=== PATIENT | female | born 1980 | race Caucasian/White ===

== ENCOUNTER 2016-11-21 01:43 | Observation (INO) | payer OTHER ==
[~2016-11-21] VITALS: Ht 162.1 cm; Wt 129.9 kg
--- NOTE | ~2016-11-21 | HP ---
PATIENT'S NAME: KRYSTA ARNDT [facility] AGE: 36 Y [address] ROOM: [address] [place], [place] [address] LOCATION: GPCU ADMIT DATE: 11/21/2016 History & Physical DISCHARGE DATE: FAMILY PHYSICIAN: Jordan Davis MD ATTENDING PHYSICIAN: Jordan Davis DATE OF SERVICE: CHIEF COMPLAINT: Complaints of severe mid anterior to left chest and left upper chest pain that radiates into her left neck, toward her left shoulder, through her back, and then toward her left shoulder in the back. This was accompanying with nauseousness and initially with cold sweats, diaphoresis, and slight shortness of breath. HISTORY OF PRESENT ILLNESS: The patient is a 36-year-old morbidly obese female with known, 3-year history of diabetes for which she is on insulin along with hypertension and hyperlipidemia. As I mentioned, she is also morbidly obese. The patient reports that she has had no illnesses recently. She also reports that she has not done any unusual lifting or carrying activities over the last several days to week. She actually just had recent normal thyroid tests on November 18. She actually did just see Dr. Davis for exam on November 12. It was for an insurance physical along with a followup. At that time, microalbumin level was normal. As I mentioned, she had thyroid tests that showed normal TSH and normal free T4. Her last A1c was quite elevated at 9.3 just on 11/12/2016. Her chemistry panel at that time showed a sodium of 137, potassium 3.7, chloride 97, CO2 of 25, glucose 149, BUN 9, creatinine 0.79, EGFR greater than 60, and calcium 10.4. Total protein 7.7. Albumin 4.4. ALT 33, AST 26, and alkaline phosphatase 78. Total bilirubin 1.0. Her lipid panel showed a cholesterol of 171, triglycerides 118, HDL 64, VLDL 23.6, and her LDL was 97. She had a urine culture that showed contamination at that time. As I mentioned, the patient has not been doing any unusual activities. She was actually at work when her symptoms happened. She works for [employer], nights. She was just sitting at her desk when she had the onset of this pain as mentioned above. As I mentioned, the pain came on, and she did state that she broke into a cold sweat. She felt short of breath and nauseous. She then went to the emergency room where she was evaluated. Cardiac enzymes, 2 sets 2 hours apart, were both normal. EKG showed no acute changes. She did have elevated D-dimer, so they did a CT PE protocol which showed no evidence of pulmonary embolism. She does have a known history of a thoracic aneurysm. It was 4.5 cm in size. In February to March of 2015, it was 4.1 cm. So, for a year and a half to a 2-year period, it has only gone up 0.4 cm. There was no evidence of dissection. It was thought best just to go ahead and admit her. Fentanyl did seem to bring down her pain. At the time I am seeing her, PATIENT'S NAME: KRYSTA ARNDT [facility] AGE: 36 Y [address] ROOM: [place] [address] LOCATION: GPCU ADMIT DATE: 11/21/2016 History & Physical DISCHARGE DATE: FAMILY PHYSICIAN: Jordan Davis MD ATTENDING PHYSICIAN: Jordan Davis the patient is resting comfortably on bed and is on her phone and watching TV. She does not be appear to be in any acute distress. She does state that her pain is 8/10 in nature. PAST MEDICAL HISTORY: ALLERGIES: ALMONDS, BANANAS, COPAXONE, COPPER, MORPHINE, AND STRAWBERRIES. CHRONIC HEALTH PROBLEMS: Include a history of acquired hypothyroidism; thoracic aortic aneurysm; and diabetes mellitus, type 2, which she has had for about 3 years and is insulin dependent. She also has essential hypertension, history of gastroesophageal reflux disease, and hiatal hernia. She does also have a history of irritable bowel syndrome with diarrhea, morbid obesity, hypercholesterolemia, seasonal allergic rhinitis, seizure disorder, somnolence, vitamin B12 deficiency, and does have this history of multiple sclerosis documented in the past. PREVIOUS SURGERIES: Include a history of hysterectomy. She had a colonoscopy on 09/16/2015 that did show 2 polyps, and it was recommended she have a repeat in 5 years. She had an EGD in 05/2012 which showed a hiatal hernia and multiple ulcers. She has had a hysteroscopy in the past along with endometrial ablation and polypectomy. She also has had a previous LEEP procedure done back in 1998. As I mentioned, she ended up with abdominal hysterectomy. She also had a history of a , a cervical fusion, lumbar fusion, and tonsillectomy in the past. SOCIAL HISTORY: The patient is and has 3 teenage boys. She works for [employer] and [employer] overnight. Habits: She does not smoke and does not drink. She does report doing a very small amount of marijuana back in high school, but has not done any during her actual adult life. FAMILY HISTORY: Remarkable for mother with a history of thyroid issues. Her father in a MVA, he was intoxicated and crashed into a truck. REVIEW OF SYSTEMS: GENERAL: Really, the patient states that she just has not felt the best over the last few days. She states she did not have anything specific. She just has not felt her normal self for about 2 days. Her main symptoms just started around midnight the day of admission. HEENT: Negative. LUNGS: Negative. PATIENT'S NAME: KRYSTA ARNDT [facility] AGE: 36 Y [address] ROOM: [address] [address] LOCATION: [facility] ADMIT DATE: 11/21/2016 History & Physical DISCHARGE DATE: FAMILY PHYSICIAN: Jordan Davis MD ATTENDING PHYSICIAN: Jordan Davis CARDIOVASCULAR: Just the chest pains as mentioned above. GASTROINTESTINAL: She did have some nauseousness, but no vomiting. GENITOURINARY: Negative. MUSCULOSKELETAL: Otherwise, negative. PHYSICAL EXAMINATION: GENERAL: An alert female who is resting comfortably at this time with her phone in front of her, looks like she was texting, and also has the TV on. HEENT: Normal. NECK: Supple. No adenopathy, thyromegaly, or bruits. LUNGS: Clear. HEART: Regular rate and rhythm. CHEST: Chest wall does show that she is significantly tender along her mid sternum with tenderness in the left costochondral junctions going toward her shoulder region. ABDOMEN: Morbidly obese. Bowel sounds positive. She is nontender and nondistended. EXTREMITIES: No cyanosis, clubbing, or edema. VITAL SIGNS: She is afebrile. Vital signs are stable. LABORATORY DATA: Blood sugar this morning is 108. Her CPK has been 109 and 89. Troponin-I less than 0.040 x2. The proBNP is normal at 62. Her white count is 8.5, hemoglobin 13.7, hematocrit 40.3, and platelet count is 220. Her glucose when she presented to the ER was 186, BUN 9, creatinine 0.8, sodium 139, potassium 3.9, chloride 104, CO2 of 27, and calcium 8.6. Total protein 7. Albumin 3.3. AST 25, ALT 35, and alkaline phosphatase 85. Total bilirubin 0.5. Magnesium slightly low at 1.5. Globulin is 3.7. Her prothrombin time is 10.1 with an INR of 0.96 with a PTT of 24. Her GFR is greater than 60. Her CK-MB is 0.6 x2. Her differential shows 54.5% neutrophils and 33.1% lymphocytes. Her D- dimer is 0.35. Her EKG shows no acute changes. CT of her chest does show the increasing thoracic aneurysm from 4.1 up to 4.5 cm on today's. No other abnormalities. ASSESSMENT: 1. Chest pain. 2. Musculoskeletal pain with palpation. 3. History of thoracic aneurysm with increase from 4.1 up to 4.5 cmm but no signs of dissection. 4. Adult-onset diabetes mellitus x3 years and is insulin dependent. 5. Morbid obesity. 6. Mild hypomagnesemia. 7. History of EGD that showed hiatal hernia with multiple ulcers in the past. 8. Questionable history of multiple sclerosis in the past. PATIENT'S NAME: KRYSTA ARNDT [facility] AGE: 36 Y [address] ROOM: [place] [address] LOCATION: GPCU ADMIT DATE: 11/21/2016 History & Physical DISCHARGE DATE: FAMILY PHYSICIAN: Jordan Davis MD ATTENDING PHYSICIAN: Jordan Davis 9. History of seizure disorder. 10. Hypertension. 11. Hyperlipidemia. PLAN: I have consulted both Dr. Begum to make sure he thinks her aneurysm is stable and Dr. Qureshi from a cardiology standpoint. Her EKG does not suggest pericarditis, but I think we need to make sure we rule this out also. We will get an echo and some inflammatory markers to check things further. We are going to finish out her serial EKG and enzymes. Dr. Davis will take over later today. I will be available until he is back in town. We did order fentanyl as needed for pain. She may just need the antiinflammatory, although we would have to make sure, with her history of GI problems, we cover her with a PPI. MD KEILY AVILEZ/skip /[id number] D: [id number] T: HISTORY & PHYSICAL
--- NOTE | ~2016-11-21 | ECHO ---
Transthoracic Echocardiography Report (TTE) Demographics Patient Name KRYSTA ARNDT Date of Study 11/21/2016 Patient Number [id number] Visit Number [id number] Date of 1980 Room Number G6303 Gender Female Number Age 36 year(s) Referring Toshia Adrian Carpenter/Labor Tawana Enamorado [facility], Physician RVT Ryan Moran APRN Physician Interpreting Kiera Abebe Fire Prevention Chief Physician Supervising Ordering Kiera Abebe MD/MLP Physician Nurse Stress Energy Scheduler Conclusions Contractility Score Summary Normal Left Ventricular contractility was noted. Summary The estimated left ventricular ejection fraction is 60-65%. Mild concentric left ventricular hypertrophy. There is mild aortic regurgitation by color Doppler. Aortic valve not well visualized The ascending aorta appears dilate and measures 4.0 cm. Procedure Type of Study TTE procedure:2D Echocardiogram. Procedure Date Date: 11/21/2016 Start: 11:36 AM Study Location: Inpatient Portable Technical Quality: Fair Indications:Chest pain. Appropriate Use Criteria: 9 Patient Status: Routine Rhythm: Within normal limits HR: 57 bpm BP: 124/73 mmHg M-Mode/2D Measurements LV Diastolic Dimension: 4.97 cm LV Systolic Dimension: 3.54 cm LV Septum Diastolic: 1.04 cm LV PW Diastolic: 1.15 cm AO Root Dimension: 2.7 cm Cardiac Output: 4.68 l/min LA Dimension: 3.6 cm LVOT: 2.1 cm IVC Inspiration: 0.96 cm LVOT VTI: 23.7 cm RV Base: 3.76 cm LV Stroke volume: 82.05 ml RV Length: 5.76 cm TAPSE: 2.55 cm TDI-S': 12.9 cm/s Doppler Measurements AV Peak Velocity: 1.54 m/s MV Peak E-Wave: 1.08 m/s AV Peak Gradient: 9.49 mmHg MV Peak A-Wave: 0.83 m/s AV Mean Gradient: 5 mmHg MV E/A Ratio: 1.29 LVOT Peak Velocity: 0.85 m/s MV P1/2t: 55 msec AV P1/2t: 968 msec TR Gradient:25.2 mmHg PV Peak Velocity: 1.07 m/s Estimated RAP:3 mmHg PV Peak Gradient: 4.58 mmHg Estimated RVSP: 28 mmHg Estimated PASP: 28.2 mmHg E' Septal Velocity: 0.11 m/s A' Septal Velocity: 0.06 m/s E' Lateral Velocity: 0.06 m/s A' Lateral Velocity: 0.09 m/s MV E/E' Ratio: 17.6 Findings Left Ventricle The estimated left ventricular ejection fraction is 60-65%. Mild concentric left ventricular hypertrophy. Diastolic assessment reveals normal relaxation. Right Ventricle Normal right ventricle structure and function. Left Atrium Normal left atrial size. Right Atrium Normal right atrial size. Mitral Valve Mild trivial regurgitation by color Doppler. Aortic Valve There is mild aortic regurgitation by color Doppler. AV is not well seen. No evidence of stenosis based on doppler gradients. Tricuspid Valve Mild tricuspid regurgitation by color Doppler. Pulmonic Valve The pulmonic valve is not well visualized. No pulmonic valve regurgitation by color Doppler. Pericardial Effusion No evidence of pericardial effusion. Miscellaneous The ascending aorta appears dilated. The maximum diameter measures 4.0 cm. Pleural Effusion No evidence of pleural effusion. Contractility Score LV regional wall motion:(0-Non visualized 1-Normal 2-Hypokinesis 3-Akinesis 4-Dyskinesis 5-Aneurysm) Signature dtt: WALTER ALEXANDRE dtd: 11/21/16 1136 Physician Self Edit
--- NOTE | ~2016-11-21 | ER ---
PATIENT'S NAME: KRYSTA ARNDT [facility] AGE: 36 Y [address] ROOM: [place] [address] LOCATION: GPCU ADMIT DATE: 11/21/2016 ER/Outpatient Report DISCHARGE DATE: FAMILY PHYSICIAN: Jordan Davis MD ATTENDING PHYSICIAN: Sagar Pope Admission date and time documented in the medical record. I saw the patient at 0155 hours. CHIEF COMPLAINT: Midanterior chest tightness with burning sensation radiating to her left neck and through to her mid upper back. HISTORY OF THE PRESENT ILLNESS: The patient is a 36-year-old female, who about an hour prior to admission in the emergency room was awoken from sleep with mid anterior chest tightness and burning sensation radiating through to her back between her shoulder blades into her left neck. She is little nauseated, short of breath. Little bit lightheaded, dizzy, but no syncope or near syncope. No vomiting, no diaphoresis. She has not felt well for several days. She is an insulin- dependent diabetic and her blood sugars have been out of her norm. No headache, eyes ears, nose, throat pain. No neck pain. No recent cough, cold, flus, fever, chills, or sweats. No fall or trauma. No abdominal pain, diarrhea, urinary frequency, urgency, or dysuria. No joint or muscle swelling, redness, or pain. No skin eruptions or rash. She does have history of hypothyroidism and insulin-dependent diabetes mellitus type 2. She does have a seizure disorder, but no previous CVA or TIA. No psych issues. HOME MEDICATIONS: See attached medication list. ALLERGIES: MORPHINE SULFATE. SOCIAL HISTORY: Nonsmoker, occasional intake of alcohol. SIGNIFICANT PAST MEDICAL HISTORY: Multiple sclerosis, seizure disorder, insulin-dependent diabetes mellitus type 2, hypothyroidism, hypertension, dyslipidemia, ascending thoracic aortic aneurysm, hiatal hernia, and gastroesophageal reflux. OPERATIONS: Cervical neck fusion, tonsillectomy, , tubal ligation, LEEP procedure. PATIENT'S NAME: KRYSTA ARNDT [facility] AGE: 36 Y [address] ROOM: [place] [address] LOCATION: GPCU ADMIT DATE: 11/21/2016 ER/Outpatient Report DISCHARGE DATE: FAMILY PHYSICIAN: Jordan Davis MD ATTENDING PHYSICIAN: Sagar Pope REVIEW OF SYSTEMS: All systems reviewed by me are negative with the exception of those discussed in the history of present illness. PHYSICAL EXAMINATION: VITAL SIGNS: Temperature 99, tympanic; pulse 90 and regular; respirations 22; blood pressure 146/100; O2 saturation on room air is 98%. Abington coma scale is 15. The patient's pain scale is about 6 to 7/10 with a maximum of 10/10 at home. HEAD: Normocephalic. EYES, EARS, NOSE, THROAT: Clear. Mucous membranes are moist. NECK: No nuchal rigidity. No thyromegaly or cervical adenopathy. No tenderness. SPINE: Nontender. No deformity. LUNGS: Clear. Good air flow. No rales, rhonchi, or wheezes. HEART: Regular. Pulses are palpable. Some mild tenderness over the sternum to palpation. ABDOMEN: Soft, nondistended, nontender, good bowel tones. No organomegaly or abnormal masses palpable. No CVA tenderness. EXTREMITIES: No peripheral edema, cyanosis, or deformity. NEUROVASCULAR: Intact. SKIN: Clear. No skin eruptions or rash. LABORATORY DATA: EKG showed sinus rhythm. No acute ST elevation, ischemic changes, or arrhythmia x2 two hours apart. [id number] cardiac enzymes were normal x2, 2 hours apart. CPK was normal x2, 2 hours apart. White count was 8500, 55 segs, 33 lymphocytes, 7 monos, 5 eos, 1 baso. Hemoglobin was 13.7, hematocrit 40.3, platelet count is 220,000. PTT was 24, pro-time is 10.1 with an INR of 0.96. CMS was normal except an elevated glucose of 186. Magnesium 1.5. ProBNP was 62. D-dimer 0.35. We did give the patient oral GI cocktail without improvement. We gave her fentanyl for pain. CT scan of the chest with IV contrast showed no evidence of pulmonary embolism, infiltrate, or effusion. There is no pericardial effusion. There was aneurysm in ascending thoracic aorta measuring 4.5 cm. No evidence of dissection. The patient had a CT scan of the chest in February 2015 and her aneurysm at that time was 4.1 cm. It has increased to 4.5 cm, although still there is no evidence of dissection. CT scan was read by Radiology, see dictated transcribed report. IMPRESSION: 1. Mid anterior chest pain radiating through to her back and her left jaw, etiology uncertain at this time. Her cardiac enzymes and EKGs were normal. Her CT scan of her chest did show ascending thoracic aortic aneurysm measuring 4.5 cm; however, there was no evidence of dissection. PATIENT'S NAME: KRYSTA ARNDT [facility] AGE: 36 Y [address] ROOM: [place] [address] [facility]: [facility] ADMIT DATE: 11/21/2016 ER/Outpatient Report DISCHARGE DATE: FAMILY PHYSICIAN: Jordan Davis MD ATTENDING PHYSICIAN: Sagar Pope 2. Hypertension. 3. Insulin-dependent diabetes mellitus type 2. 4. Dyslipidemia. 5. Hiatal hernia with gastroesophageal reflux. 6. Seizure disorder. 7. Multiple sclerosis. PLAN: I did discuss this patient with Dr. Pope per Dr. Davis. We will admit the patient to PCU telemetry for further evaluation. Discussion ensued with the patient concerning my findings and recommendations, she understands. COURTNEY DEL VALLE MD SDS/modl /[id number] d: 11/21/16617 t: 11/21/16 1821, OUTPATIENT REPORT
--- NOTE | ~2016-11-21 | CON ---
PATIENT'S NAME: KRYSTA ARNDT [facility] AGE: 36 Y [address] ROOM: [place] [address] LOCATION: GPCU ADMIT DATE: 11/21/2016 Consultation DISCHARGE DATE: FAMILY PHYSICIAN: Jordan Davis MD ATTENDING PHYSICIAN: Jordan aDvis REFERRING PHYSICIAN: Johnnie Begum DO REFERRING PHYSICIAN: Dr. Pope. REASON FOR CONSULT: Chest pain, thoracic aortic aneurysm. HISTORY OF PRESENT ILLNESS: Ms. Arndt is a pleasant 36-year-old female with history of hypertension, diabetes, hyperlipidemia. The patient has been symptomatic since last night with complaints of chest pain. 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 The pain was severe in intensity. The pain started in the back of her upper chest. She also complained of pain on the front of the chest. She also complained of tightness in the chest. The patient stated that coughing makes her pain feel better. No specific relationship with movements. The pain is not related to exertion. The patient complained of persistent pain since midnight last night. No other specific aggravating or relieving factors. REVIEW OF SYSTEMS: The patient denied any recent change in vision except she stated that she off and on has fuzziness in front of her eyes. No history of nausea, vomiting, diarrhea, or constipation. No history of fever. No history of significant weight gain or weight loss. No history of palpitations. Review of other systems was essentially negative. PAST MEDICAL HISTORY: Hypertension, diabetes, hyperlipidemia, hiatal hernia, gastroesophageal reflux disease. SOCIAL HISTORY: The patient is and lives with her . PERSONAL HISTORY: Nonsmoker, has occasional alcoholic beverage. FAMILY HISTORY: Her grandfather had arrhythmia. No history of premature coronary artery disease in the family. Her mother is alive and healthy, has hypertension. Her father in an accident. PATIENT'S NAME: KRYSTA ARNDT [facility] AGE: 36 Y [address] ROOM: [place] [address] LOCATION: GPCU ADMIT DATE: 11/21/2016 Consultation DISCHARGE DATE: FAMILY PHYSICIAN: Jordan Davis MD ATTENDING PHYSICIAN: Jordan Davis CURRENT MEDICATIONS: 1. Metoprolol 25 mg b.i.d. 2. Lisinopril 10 mg daily. 3. Insulin. 4. Atorvastatin 80 mg daily. 5. Aspirin 81 mg daily. 6. Fluticasone spray. 7. Loratadine 10 mg p.r.n. 8. Levothyroxine 175 mcg daily. 9. Insulin. 10. Acetaminophen p.r.n. 11. Ondansetron p.r.n. PHYSICAL EXAMINATION: GENERAL: She is awake, alert, and oriented. VITAL SIGNS: Her heart rate is 68 beats per minute, blood pressure is 122/60, temperature 97.7, and respiratory rate 16. HEENT: Her head is atraumatic and normocephalic. Pupils are bilaterally equal. Oral mucosa is moist. NECK: No significant jugular venous distention is present. CARDIOVASCULAR: S1 and S2 are audible. They are regular in rate and rhythm with no audible murmur. RESPIRATORY: Bilateral vesicular breath sounds are audible with no adventitious sounds. ABDOMEN: Soft, nontender. Bowel sounds are present. The patient has chest wall tenderness anteriorly in the parasternal area. EXTREMITIES: Showed no significant pedal edema. NEUROLOGIC: The patient is awake, alert, and oriented. No focal neurological deficits noted. SKIN: Warm and dry. LABORATORY DATA: Sodium 139, potassium 3.9, chloride 104, CO2 27, glucose 186, BUN 9, creatinine 0.8. Albumin is 3.3. AST 25, ALT 35. Magnesium 1.5. CPK 89. CK- MB 0.6. Troponin less than 0.04. White blood cell count 8.5, hemoglobin 13.7, platelet count 220. Her EKG showed sinus rhythm with no acute ST-T wave changes. CT scan of the chest done on November 21, 2016 showed aneurysmal dilatation of ascending thoracic aorta measuring 4.5 cm. ASSESSMENT: 1. Chest pain. 2. Hypertension. 3. Hyperlipidemia. 4. Diabetes mellitus. 5. Hypomagnesemia. PATIENT'S NAME: KRYSTA RANDT [facility] AGE: 36 Y [address] ROOM: [address] [place], [place] [address] LOCATION: GPCU ADMIT DATE: 11/21/2016 Consultation DISCHARGE DATE: FAMILY PHYSICIAN: Jordan Davis MD ATTENDING PHYSICIAN: Jordan Davis 6. Gastroesophageal reflux disease. 7. Thoracic aortic aneurysm. PLAN: The patient has had persistent chest pain for over 10 hours. Her cardiac enzymes are negative so far. Her pain is reproducible on pressing on the chest wall suggesting musculoskeletal in origin. However, patient has risk factors for coronary artery disease, including hypertension, diabetes, and hyperlipidemia. The patient also has thoracic aortic aneurysm. We will obtain 2D echocardiogram to evaluate left ventricular function as well as aortic valve. Continue medical therapy for hypertension, diabetes, and hyperlipidemia. We will monitor serial cardiac isoenzymes and EKGs. We will make further recommendations depending on echocardiogram results. We will replace magnesium. We will follow the patient along with you. Thank you, Dr. Pope, for allowing us in taking part in the care of this pleasant patient. The plan of care was discussed with the patient and Dr. Pope. MD TAVIA HOFFMAN/skip /[id number] d: 11/21/16 1349 t: 11/26/16 1626, CONSULTATION REPORT
[~2016-11-21 01:43] MED LIST: ASPIRIN EC81 MG PO; FLONASE 50 MCG/16 GM NOSE; GLUCOPHAGE1000 MG PO; HUMALOG100 UNIT/1 SUB-Q; LANTUS100 UNIT/1 SUB-Q; LEVOTHROID(SY175 MCG PO; LIPITOR80 MG PO; LOPRESSOR25 MG PO; MOTRIN800 MG PO; PERCOCET 5-3251 EACH PO; PRINIVIL OR ZES10 MG PO; ZYRTEC10 MG PO
[2016-11-21 02:04] LABS: BASOPHIL # 0.1 K/uL (0.0-0.2); BASOPHIL % 0.7 %; EOSINOPHIL # 0.4 K/uL (0.0-0.5); EOSINOPHIL % 4.6 %; HEMATOCRIT 40.3 % (33.0-46.0); HEMOGLOBIN 13.7 g/dL (11.0-15.0); IMMATURE GRANULOCYTE % 0.4 %; LYMPHOCYTE # 2.8 K/uL (0.8-4.0); LYMPHOCYTE % 33.1 %; MCH 31.4 pg (27.0-34.0); MCV 92.2 fl (83.0-98.0); MONOCYTE # 0.6 K/uL (0.0-1.0); MONOCYTE % 6.7 %; MPV 9.9 fl (9.4-12.4); NEUTROPHIL # (ANC) 4.6 K/uL (1.8-7.8); NEUTROPHIL % 54.5 %; NRBC % 0 /100WBC (0-0.00); PLATELET COUNT 220 K/uL (150-450); RBC 4.37 M/uL (3.50-5.50); WBC 8.5 K/uL (4.0-11.0)
[2016-11-21 02:19] LABS: INR - (THERAPEUTIC) 0.96 (0.92-1.07); PROTIME 10.1 SECONDS (9.8-11.4); PTT 24 SECONDS (25-32)
[2016-11-21 02:23] LABS: ALBUMIN 3.3 gm/dL (3.5-5.0); ALK PHOS 85 IU/L (33-138); ALT 35 IU/L (12-78); ANION GAP 11.9 (10.0-19.0); AST 25 IU/L (10-40); BLOOD UREA NITROGEN 9 mg/dL (6-24); CALCIUM 8.6 mg/dL (8.5-10.5); CHLORIDE 104 mMol/L (96-110); CO2 27 mMol/L (22-32); CPK 109 IU/L (21-215); CREATININE 0.8 mg/dL (0.5-1.1); MAGNESIUM 1.5 mg/dL (1.8-2.6); POTASSIUM 3.9 mMol/L (3.7-5.1); SODIUM 139 mMol/L (135-145); TOTAL BILIRUBIN 0.5 mg/dL (0.0-1.5)
[2016-11-21 04:14] LABS: CPK 89 IU/L (21-215)
[2016-11-21] MEDS ORDERED: HUMALOG100 UNIT/3 SUB-Q (05:47)
--- NOTE | 2016-11-21 07:08 | NUR ---
Patient is 36 year old female. Came in to [facility] ER after having chest tightness/burning while at work. Patient states pain started around 0100 then began radiating to back, left shoulder, and neck. Patient also states she has not felt good for the past few days. Significant history of Diabetes, Hypertension, Hypothyroid, and Ascending Thoracic Aneurysm (has been seeing Dr. Begum for). All cardiac enzymes, labs, and EKG in ER were negative. CT of chest showed no dissection of aneurysm. Was given 4 baby Aspirin, Zofran, GI Cocktail, and Fentynal in ER. All with no relief to patient. Dr. Pope admitting for observation. Vital signs upon arriving to PCU: HR 63. Temp 98.2. RR 17. O2 97% RA. BP 123/72.
[2016-11-21 10:41] LABS: CPK 111 IU/L (21-215)
--- NOTE | 2016-11-21 15:05 | NUR ---
Significant event: A&Ox3. HR 50-60's. Afebrile. RA. SBP 100-120's. Has "hot pressure" to epigastric region that radiates to mid back and L) neck, worse with deep breathing and palpitation. Tylenol did not help with the pain. Fentanyl given this afternoon, with relief noted. Cardiac enzymes have been negative. Echo done today. Shy and Kiera were consulted and saw patient. Follow Up: Possible treadmill stress test in AM pending enzymes and echo, to hold AM lopressor. Sachi enzymes.
[2016-11-21 17:13] LABS: CPK 100 IU/L (21-215)
[2016-11-22 04:55] LABS: MAGNESIUM 1.9 mg/dL (1.8-2.6)
--- NOTE | 2016-11-22 05:31 | NUR ---
Significant Event: Patient alert and oriented x3. SBP 10ss-120s. HR 50s-70s. All other vital signs stable. On RA. Complained of burning epigastric/chest pain. Fentanyl given x1 with little relief. Up independently in room. Showered and walked halls this shift. Stated pain felt worse with walking. Better with rest. Good uop. Calm and cooperative with all cares. Follow up: Treadmill Stress test today.
--- NOTE | 2016-11-22 13:50 | NUR ---
D/C ORDERS RECIEVED. REVIEWED WITH THE PATIENT AND HER SPOUSE ALL D/C INFORMATION INCLUDING MEDICATIONS, FOLLOW-UP APPTS, INSTRUCTIONS, AND CARES. APPTS MADE FOR HER F/U [facility] AND STRESS TEST AND THE INFORMATION WAS GIVEN TO HER. PIV D/C'D AND CATHETER INTACT. UP TO DATE ON PNEUMONIA VACCINE. TAKEN VIA W/C TO THE FRONT ENTRANCE OF THE HOSPITAL BY MYSELF AND HER TO DRIVE HER HOME.BOTH THE PATIENT AND HER SPOUSE VERBALIZED UNDERSTANDING OF ALL INSTRUCTIONS AND TEACHING.
== END 2016-11-22 11:34 | disposition disaster alternative care site (69) ==
LOC: GMED 01:43 → GPCU 04:52
PROVIDERS: Emergency Medicine; Internal Medicine Interventional Cardiology; ADMIT Obstetrics & Gynecology Obstetrics
DX: R07.89 Other chest pain (principal); E11.9 Type 2 diabetes mellitus without complications; I10 Essential (primary) hypertension; E78.5 Hyperlipidemia, unspecified; E66.01 Morbid (severe) obesity due to excess calories; E03.9 Hypothyroidism, unspecified; K21.9 Gastro-esophageal reflux disease without esophagitis; E78.00 Pure hypercholesterolemia, unspecified; G35 Multiple sclerosis; I71.2 Thoracic aortic aneurysm, without rupture; E83.42 Hypomagnesemia; G40.909 Epilepsy, unspecified, not intractable, without status epilepticus; Z68.42 Body mass index [BMI] 45.0-49.9, adult; Z90.710 Acquired absence of both cervix and uterus; Z98.890 Other specified postprocedural states; Z79.4 Long term (current) use of insulin; Z79.899 Other long term (current) drug therapy; Z91.010 Allergy to peanuts; Z91.018 Allergy to other foods; Z88.5 Allergy status to narcotic agent
CPT/HCPCS: G0378; J2405; J3010; J3475; J7030; J7050; Q9967

== ENCOUNTER → 2016-11-25 | Outpatient (CLI) | payer OTHER ==
[~2016-11-25] MED LIST changes: +HUMALOG100 UNIT/3 SUB-Q
--- NOTE | ~2016-11-25 | ESTC ---
Cardiac Perfusion Imaging Demographics Patient Name HAIR Fields Gender Female Patient Number [id number] Race Visit Number [id number] Ethnicity Corporate ID Room Number Accession Number [id number] Height 63 inches Date of 1980 Weight 280 pounds MD Kiera Abebe Interpreting Kiera Date of study 11/25/2016 Physician Mis Supervising /KAIA Alexandre NM Technologist Kiet Abebe Ordering Physician Stress snow technician Stress ECG Reading Kiera Nurse Rebecca Ashraf RN Physician Mis Moran RN Procedure Procedure Type: Nuclear Stress Test:Cardiolite Stress Test Procedure Start time: 11/25/2016 08:47 Indications: Chest pain and Aneurysm. Risk Factors The patient risk factors include:obesity, hypertension, insulin treated diabetes mellitus and dyslipidemia. Conclusions Summary Perfusion Images: The overall quality of the study is good. Left ventricular cavity is noted to be normal on the stress and rest studies. There is no evidence of abnormal lung activity. The right ventricle is not visualized and cannot be assessed. Stress SPECT images and Rest SPECT images demonstrate homogenous tracer distribution throughout the myocardium. Gated SPECT imaging reveals normal myocardial thickening and wall motion. The left ventricular ejection fraction was calculated to be 62%. Impression ECG portion of stress test is clinically negative for ischemia by diagnostic criteria. Myocardial perfusion imaging is normal. Overall left ventricular systolic function was normal without regional wall motion abnormalities. There are no previous studies for comparison. Stress Protocols Resting ECG Sinus rhythm Pre-stress physical exam: Patient assessed by Dr Alexandre prior to testing. Predicted HR: 182 bpm ECG Findings No ECG changes suggestive of ischemia. Arrhythmias No rhythm abnormality. Symptoms Back pain, mild SOB Stress Interpretation Appropriate hemodynamic response to exercise. No significant ST-T wave changes with exercise. EKG portion is negative for ischemia by diagnostic criteria. The Roman Treadmill score was 5 .This corresponds to a low risk stress test. Nuclear images are pending Imaging Results Summed scores - Summed stress score: 13 - Summed rest score: 14 - Summed difference score: -1 Stress ejection Ejection fraction:63 % EDV :107 ml ESV :40 ml Stroke volume :67 ml LV mass :146 gr Imaging Protocols Rest Stress Isotope:Tc99m Sestamibi IV Isotope: Tc99m Sestamibi IV Isotope dose:15.2 mCi Isotope dose:43.4 mCi Date:11/25/2016 07:45 Date:11/25/2016 09:13 Technique: SPECT Technique: Gated Supine SPECT Supine Scan Time:45-60 minutes post Scan Time:45-60 minutes post injection injection Medical History Admission Data Admission date: 11/25/2016 Admission Time: 07:24 Hospital Status: Outpatient. Signatures dtt: MIS ALEXANDRE dtd: 11/25/16 0847 Physician Self Edit
== END | disposition disaster alternative care site (69) ==
LOC: GRAD 07:24
DX: I71.2 Thoracic aortic aneurysm, without rupture (principal); R06.9 Unspecified abnormalities of breathing; E66.9 Obesity, unspecified; I10 Essential (primary) hypertension; E11.9 Type 2 diabetes mellitus without complications; E78.5 Hyperlipidemia, unspecified
CPT/HCPCS: A9500

== ENCOUNTER → 2016-11-26 | Day surgery (SDC) | payer OTHER ==
--- NOTE | ~2016-11-26 | ECHO ---
Transesophageal Echocardiography Report ([facility]) Demographics Patient Name KRYSTA ARNDT Date of Study 11/26/2016 Patient Number [id number] Visit Number [id number] Date of 1980 Room Number Gender Female Number Age 36 year(s) Referring Kiera Pin Machine Operator Armando Souza RVPrieto Physician Mis Physician Interpreting Kiera Abebe Prop Setter Physician Supervising Ordering Kiera Abebe MD/KAIA Physician Nurse Stress Medical Case Manager Conclusions Summary Transesophageal echocardiogram was done under general anasthesia without difficult probe placement. Thoracic aortic aneurysm. Aortic root measures 3.17 cm. Ascending aorta measures 4.1 cm, Descending thoracic aorta 2.3 cm The estimated LV ejection fraction is 60-65 %. Normal left ventricular systolic function. Normal right ventricular function. Normal size left atrium. Normal size right atrium. There is no evidence of PFO or ASD by bubble study. There is no evidence of LA or RICH appendage thrombus. Trivial mitral valve regurgitation. No evidence of mitral valve stenosis. No aortic valve insufficiency. Mild tricuspid valve regurgitation. No evidence of pericardial effusion. The interatrial septum appears aneurysmal. Procedure Type of Study [facility] procedure Procedure Date Date: 11/26/2016 Start: 09:26 AM Study Location: Inpatient Portable Technical Quality: Adequate visualization Indications:Chest pain. Appropriate Use Criteria: 9 Patient Status: Routine HR: 95 bpm BP: 113/72 mmHg Findings Left Atrium The interatrial septum appears aneurysmal. Contractility Score LV regional wall motion:(0-Non visualized 1-Normal 2-Hypokinesis 3-Akinesis 4-Dyskinesis 5-Aneurysm) Signature dtt: MIS ALEXANDRE dtd: 11/26/16 0926 Physician Self Edit
--- NOTE | 2016-11-26 11:29 | NUR ---
11/26/16 0902: PATIENT INITIALLY WAS CHECKING INTO ADMISSIONS AT 0805. PER REPORT FROM ADMISSIONS, PATIENT RECEIVED A PHONE CALL FROM FAMILY AND STATED SHE HAD TO LEAVE FOR A ILY EMERGENCY AND WOULD BE BACK IN APPROXIMATELY 15 MINUTES. PATIENT THEN RECHECKED HERSELF IN AT 0850 PER ADMISSIONS AND WAS BROUGHT BACK TO [facility] AT 0902.
== END ==
LOC: GOPD 11-25
DX: I71.2 Thoracic aortic aneurysm, without rupture (principal); I08.1 Rheumatic disorders of both mitral and tricuspid valves; E78.5 Hyperlipidemia, unspecified; I10 Essential (primary) hypertension; E83.42 Hypomagnesemia; E11.9 Type 2 diabetes mellitus without complications; F41.9 Anxiety disorder, unspecified; K21.9 Gastro-esophageal reflux disease without esophagitis; M81.0 Age-related osteoporosis without current pathological fracture; Z79.4 Long term (current) use of insulin; Z79.82 Long term (current) use of aspirin; Z79.899 Other long term (current) drug therapy; Z88.5 Allergy status to narcotic agent; Z88.8 Allergy status to other drugs, medicaments and biological substances
CPT/HCPCS: J2001; J7030